=== PATIENT | male | born 1960 | race Caucasian/White ===

== ENCOUNTER 2017-11-03 16:32 | Day surgery (SDC) | payer BC ==
[~2017-11-03 16:32] MED LIST: Lidocaine 1% PF 5 ML VIAL ONE; PROPOFOL 200 MG/20 ML VIAL ONE
[2017-11-03] MEDS ORDERED: Fluorouracil 100 MG, Enoxaparin Sodium 25 MG, EPINEPHrine 0.3 MG in Ophthalmic Irrigati... IVPB SCH (16:39)
[2017-11-03] MEDS ORDERED: Phenylephrine 2.5% Ophth Soln 5 ML BOT FS SCH (16:39)
[2017-11-03] MEDS ORDERED: Cyclopentolate 1% Opth Drop 2 ML BOT FS SCH (16:39)
[2017-11-03] MEDS ORDERED: Phenylephrine 2.5% Ophth Soln 5 ML BOT ONE (17:07)
[2017-11-03] MEDS ORDERED: Cyclopentolate 1% Opth Drop 2 ML BOT ONE (17:07)
[2017-11-03] MEDS ORDERED: Midazolam HCl 2 mg/2 ml Vial ONE (21:47)
[2017-11-03] MEDS ORDERED: Fentanyl 100 MCG/2 ML VIAL ONE (21:47)
--- NOTE | 2017-11-04 06:10 | OP ---
DATE OF PROCEDURE: 11/03/2017 PREOPERATIVE DIAGNOSIS: Rhegmatogenous retinal detachment, right eye. POSTOPERATIVE DIAGNOSIS: Rhegmatogenous retinal detachment, right eye. PROCEDURE: Pars plana vitrectomy and retinal detachment repair, right eye. SURGEON: Dr. Tk Hines ANESTHESIA: General endotracheal. COMPLICATIONS: None. PROCEDURE IN DETAIL: The patient was identified in the preoperative holding area. Appropriate infor med consent for the planned surgical procedure on the right eye had been obtained. The patient was t ransported to the operative suite. Appropriate cardiopulmonary monitoring established. Local anesth esia obtained. General endotracheal anesthesia was initiated. Local anesthesia was obtained using re trobulbar block. The patient was prepped and draped in the usual sterile manner for ophthalmic surge ry on the right eye. Lid speculum was placed in the right eye. The 25-gauge trocars were placed in conjunctiva and sclera supratemporally, inferotemporally, and supranasally. Infusion line was placed inferotemporally. Light pipe and vitreous cutter were inserted into the eye. Core vitrectomy was p erformed. The tear was noted at the 1:30 o'clock position. Vitreus space was trimmed back 360 degre es using wide field viewing system. Posterior drain retinotomy was created. Complete air fluid exch star was performed, 10 minutes being allowed for fluid to drain posteriorly. A 360 laser was placed using endolaser delivery device. 28% sulfur hexafluoride gas was infused into the eye. Supratempora l and supranasal sclerotomy sutured closed. Retrobulbar Kenalog and subconjunctival Ancef were place d, antibiotic ointment placed, and the eye was patched and shielded. The patient was taken to the stoperative recovery unit in good condition having suffered no immediate perioperative complications. DISCHARGE INSTRUCTIONS: The patient was instructed to keep patch and shield on, position left side d own. Follow up in the morning with Dr. Hines.
== END 2017-11-04 00:11 | disposition home or self-care (01) ==
LOC: SDC 16:32
PROVIDERS: ATTEND Ophthalmology Retina Specialist
PROC: 08T43ZZ Resection of Right Vitreous, Percutaneous Approach (ICD-10-PCS; principal; 2017-11-03)
DX: H33.021 Retinal detachment with multiple breaks, right eye (principal)
CPT/HCPCS: 67025; J0171; J1650; J2001; J2250; J2704; J3010; J9190

== ENCOUNTER 2018-02-01 19:30 | Outpatient (CLI) | payer BC | END 2018-02-01 19:31 | disposition home or self-care (01) | LOC: SLEEPLAB 19:30 | PROVIDERS: ATTEND Family Medicine | DX: G47.33 Obstructive sleep apnea (adult) (pediatric) (principal); E66.9 Obesity, unspecified; R06.83 Snoring; F32.9 Major depressive disorder, single episode, unspecified; G47.00 Insomnia, unspecified; I10 Essential (primary) hypertension; Z68.32 Body mass index [BMI] 32.0-32.9, adult | CPT/HCPCS: 95811 ==

== ENCOUNTER 2018-07-28 14:21 | Outpatient (CLI) | payer BC ==
--- NOTE | 2018-07-28 14:50 | RAD ---
CHEST TWO VIEWS: Comparison: 07-18-17, 03-21-16 History: Pain. FINDINGS: Normal cardiac silhouette. The pulmonary vessels and hilum are normal. Costophrenic angles are clear. No masses or consolidation. No pneumothorax or osseous abnormalities. Stable calcified granuloma pro jecting over the right upper lobe. IMPRESSION: No acute cardiopulmonary process. POS: [facility]
== END 2018-07-28 14:22 | disposition home or self-care (01) ==
LOC: SCSRAD 14:21
PROVIDERS: ATTEND Family Medicine
DX: R07.1 Chest pain on breathing (principal)
CPT/HCPCS: 71046

== ENCOUNTER 2018-10-22 13:14 | Outpatient (CLI) | payer BC ==
--- NOTE | 2018-10-22 14:38 | RAD ---
RIGHT ANKLE 3 VIEWS: HISTORY: Right ankle pain and swelling. FINDINGS/IMPRESSION: Degenerative changes are present. No acute fracture, dislocation, or bony destruction is seen. The ankle mortise is maintained. POS: [facility]
--- NOTE | 2018-10-22 14:44 | RAD ---
RIGHT FOOT 3 VIEWS: HISTORY: Right foot pain. FINDINGS/IMPRESSION: There is a nondisplaced fracture involving the distal shaft of the third metatarsal. POS: [facility]
== END 2018-10-22 13:15 | disposition home or self-care (01) ==
LOC: SCSRAD 13:14
PROVIDERS: ATTEND Physician Assistant Medical
DX: M79.671 Pain in right foot (principal); S92.334A Nondisplaced fracture of third metatarsal bone, right foot, initial encounter for closed fracture; M19.071 Primary osteoarthritis, right ankle and foot

== ENCOUNTER 2018-12-08 16:46 | Outpatient (CLI) | payer BC ==
--- NOTE | 2018-12-08 18:43 | RAD ---
THREE VIEWS RIGHT FOOT: 12/08/18 HISTORY: Right foot pain. Follow-up nondisplaced fracture third metatarsal. FINDINGS: The previously seen fracture involving the shaft of the right third metatarsal is again seen. There i s now exuberant callus formation about the fracture suggesting interval healing. No additional fractu re is seen, and there is no evidence of a dislocation. A plantar calcaneal enthesophyte is again iden tified. There is a corticated osseous density inferior to the lateral malleolus stable from prior romy dy which may represent a remote avulsion injury. IMPRESSION: Healing fracture right third metatarsal. POS: [facility]
== END 2018-12-08 16:47 | disposition home or self-care (01) ==
LOC: SCSRAD 16:46
PROVIDERS: ATTEND Family Medicine
DX: S92.334D Nondisplaced fracture of third metatarsal bone, right foot, subsequent encounter for fracture with routine healing (principal)

== ENCOUNTER 2019-10-15 14:30 | Outpatient (CLI) | payer BC ==
--- NOTE | 2019-10-15 17:50 | CT ---
CT OF THE ABDOMEN WITH AND WITHOUT IV CONTRAST 10/15/19 COMPARISON: CT abdomen with and without contrast 10/11/14, MRI abdomen 09/13/14. HISTORY: Re-evaluate pancreatic lesion seen on prior imaging. TECHNIQUE: Axial CT imaging is provided at 5 mm intervals from the lung bases through the sacrum with oral contr ast, without IV contrast. Subsequently, axial CT imaging at 3 mm intervals obtained with IV contrast in the hepatic arterial dominant phase and the portal venous phase. Thin section imaging of portal ve nous phase imaging provided through the pancreas at 1.5 mm intervals. Coronal and sagittal reformatte d imaging obtained. FINDINGS: The visualized lung bases appear unremarkable. Granulomatous calcifications are again noted within th e liver and spleen. Gallbladder is surgically absent. Hepatic parenchyma is diffusely hypodense suggesting a degree of hepatic steatosis. No focal liver le jadon is noted. Adrenal glands and kidneys are unremarkable. There is a low density lesion within the head of the pancreas just anterior to the portal vein is bes t seen on the hepatic arterial dominant phase imaging. There are two coarse calcifications along the posterior margin of the this lesion which appear unchanged when compared to the 2015 exam. The lesion itself measures approximately 2.2 cm in AP dimension, 1.5 cm in transverse dimension, and approximat zeb 1.2 cm in craniocaudal dimension. It is difficult to accurately measure on this examination as it blends in with the adjacent pancreatic parenchyma. On a prior MRI performed 09/13/14, this lesion appe ared to measure approximately 1.8 x 1.[address] prior CT performed 10/31/14, it was estimated to nicole sure approximately 2.1 x 1.4 cm. This suggests that this lesion has not significantly grown when comp ared to the prior examination performed five years prior. There is no pancreatic ductal dilatation se en. No additional pancreatic lesion is appreciated on this examination. Partially imaged bowel demonstrates no evidence for bowel obstruction. Congenital malrotation is note d with the colon noted centrally and to the left of midline with the small bowel noted primarily on t he right. There is a small fat containing umbilical hernia. The vascular structures appear patent. No lymphadenopathy is seen. Review of the osseous structures demonstrates no worrisome lesions. IMPRESSION: Little significant interval change when compared to the study performed five years prior with respect to the low density lesion within the pancreatic body. POS: [facility]
== END 2019-10-15 14:31 | disposition home or self-care (01) ==
LOC: SCSCT 14:30
PROVIDERS: ATTEND Family Medicine
DX: K86.2 Cyst of pancreas (principal); K86.89 Other specified diseases of pancreas
CPT/HCPCS: 74170

== ENCOUNTER 2019-11-22 10:56 | Outpatient (CLI) | payer BC ==
--- NOTE | 2019-11-22 12:11 | ULT ---
Ultrasound of thescrotum/testicles: 11/22/2019 COMPARISON:None available HISTORY:Bilateral hydrocele TECHNIQUE: Multiplanar grayscale sonographic imaging of thescrotal contents, including Doppler interr ogation of the testicles with color flow/spectral analysis FINDINGS:The left testicle measures 3.0 x 4.9 x 2.6 cm in the right testicle measures 3.0 x 5.2 x 2.6 cm. Normal blood flow is noted within both testicles. No intratesticular mass is noted. Prominent bilateral hydroceles are noted. There is septation associated with the right-sided hydrocel e. The left epididymal head measures 1.5 x 1.1 cm and the right epididymal head measures 1.5 x 0.8 cm. T here is an epididymal head cyst on the right measuring 6 mm. IMPRESSION:Prominent bilateral hydroceles. No intratesticular mass.
== END 2019-11-22 10:57 | disposition home or self-care (01) ==
LOC: SCSULT 10:56
PROVIDERS: ATTEND Urology
DX: N43.3 Hydrocele, unspecified (principal)
CPT/HCPCS: 76870; 93976

== ENCOUNTER 2021-06-06 13:41 | Outpatient (CLI) | payer BC ==
[2021-06-06 14:55] LABS: Bilirubin Neg (Negative); Blood, Urine 25 (Negative); Clarity Clear (Clear); Glucose, Urine (Dipstick) Normal (Negative); Ketone, Urine Negative (Negative); Leukocyte 25 (Negative); Nitrite Negative (Negative); Protein, Urine (Dipstick) Negative (Neg-Trace); Urobilinogen Normal mg/dL (Less than 2)
[2021-06-06 15:01] LABS: #Eosinphils 0.1 10x3/uL (0.0-0.5); #Monocytes 0.7 10x3/uL (0.0-1.1); %Basophils 0.3 % (0.0-2.0); %Eosinophils 1.7 % (0.0-6.0); %Lymphocytes 37.4 % (18.0-47.0); %Monocytes 8.7 % (0.0-10.0); %Neutrophils 51.8 % (40.0-75.0); Hemoglobin 15.1 g/dL (13.5-17.5); Mean Corpuscular HGB CONC 33.6 g/dL (32.0-36.0); Mean Corpuscular Hemoglobin 31.9 pg (27.0-33.0); Mean Corpuscular Volume 94.9 fl (81.2-95.1); Mean Platelet Volume 9.6 fl (7.4-10.4); Platelet Count 246 10x3/uL (150-450); RBC Distribution Width 12.3 % (11.5-14.5); Red Blood Cell (RBC) Count 4.74 10x6/uL (4.32-5.72); White Blood Cell (WBC) Count 7.7 10x3/uL (3.5-10.5)
[2021-06-06 15:22] LABS: Prothrombin Time 10.9 sec (9.5-12.1)
[2021-06-06 15:28] LABS: Anion Gap 15 mmol/L (10-20); BUN (Urea Nitrogen) 14 mg/dL (8.4-25.7); Calc. Creatinine Clearance 0 mL/min (70-130); Calcium 9.5 mg/dL (7.8-10.44); Carbon Dioxide 24 mmol/L (23-31); Chloride 106 mmol/L (98-107); Glucose 180 mg/dL (80-115); Potassium 4.1 mmol/L (3.5-5.1); Sodium 141 mmol/L (136-145)
[2021-06-07 08:57] LABS: SARS-CoV-2 PCR by NAA Not Detected (NotDetected)
== END 2021-06-06 13:42 | disposition home or self-care (01) ==
LOC: LABBT 13:41
PROVIDERS: ATTEND Orthopaedic Surgery
DX: Z01.818 Encounter for other preprocedural examination (principal); M17.12 Unilateral primary osteoarthritis, left knee; Z20.822 Contact with and (suspected) exposure to COVID-19
CPT/HCPCS: 71046; 80048; 81003; 85025; 85610; 86850; 86900; 86901; 87081; 93005; 93010; U0003; U0005

== ENCOUNTER 2021-06-11 05:34 | Observation (INO) | payer BC ==
[2021-05-29 14:25] VITALS: BMI 38.9
[2021-06-11] MEDS ORDERED: Sodium Chloride 0.9% 100 ML ONE (05:56)
[2021-06-11] MEDS ORDERED: Tranexamic Acid 1,000 MG/10 ML VIAL ONE ×2 (05:56→09:35)
[2021-06-11] MEDS ORDERED: Fentanyl 100 MCG/2 ML VIAL ONE ×3 (06:14→09:20)
[2021-06-11] MEDS ORDERED: VANCOMYCIN 2 GRAM/400 ML BAG 2 GM in Premix Bag 1 BAG IVPB SCH ×2 (06:15→18:00)
[2021-06-11] MEDS ORDERED: Bupivacaine PF 0.5% 30 ML VIAL ONE (06:20)
[2021-06-11] MEDS ORDERED: Midazolam HCl 2 mg/2 ml Vial ONE (06:41)
[2021-06-11] MEDS ORDERED: Lidocaine 1% (PF) 30 ML VIAL ONE (06:41)
[2021-06-11] MEDS ORDERED: ceFAZolin 2 GM/Dextrose 50 ML IVPB ONE (07:04)
[2021-06-11] MEDS ORDERED: Tranexamic Acid 1,000 MG in Sodium Chloride 0.9% 100 ML IVPB SCH (07:15)
[2021-06-11] MEDS ORDERED: Ondansetron PF 4 MG/2 ML Vial IVP PRN ×2 (07:16→08:45)
[2021-06-11] MEDS ORDERED: Acetaminophen 325 MG TAB PO PRN (07:16)
[2021-06-11] MEDS ORDERED: Promethazine HCl 25 MG/ML VIAL IM PRN ×3 (07:16→09:08)
[2021-06-11] MEDS ORDERED: diphenhydrAMINE 25 MG CAP PO PRN (07:16)
[2021-06-11] MEDS ORDERED: Fentanyl 100 MCG/2 ML VIAL SLOW IVP PRN (07:16)
[2021-06-11] MEDS ORDERED: traMADol HCl 50 MG TAB PO PRN ×3 (07:16→08:45)
[2021-06-11] MEDS ORDERED: Zolpidem Tartrate 5 MG TAB PO PRN ×2 (07:16→08:45)
[2021-06-11] MEDS ORDERED: HYDROcodone/Acetaminophen 10/325 mg Tablet PO PRN ×3 (07:16→08:45)
[2021-06-11] MEDS ORDERED: PROPOFOL 200 MG/20 ML VIAL ONE (07:17)
[2021-06-11] MEDS ORDERED: Bupivacaine HCl 0.5%/Epinephrine 1:200,000/PF 30 ml Vial ONE (07:17)
[2021-06-11] MEDS ORDERED: Ondansetron PF 4 MG/2 ML Vial ONE (07:17)
[2021-06-11] MEDS ORDERED: Dexamethasone 20 MG/5 ML VIAL ONE (07:17)
[2021-06-11] MEDS ORDERED: HYDROmorphone 2 MG/ML VIAL ONE (07:30)
[2021-06-11] MEDS ORDERED: Fentanyl 100 MCG/2 ML VIAL IV PRN (08:43)
[2021-06-11] MEDS ORDERED: Ropivacaine 0.2% 550 ML 550 ML NERVE BLCK SCH (08:45)
[2021-06-11] MEDS ORDERED: Non-Formulary Item 1 EACH (Celecoxib [Celebrex] 200 MG Capsule) PO SCH (09:00)
[2021-06-11] MEDS ORDERED: Atorvastatin Calcium 10 MG TAB PO SCH (09:00)
[2021-06-11] MEDS ORDERED: CeleCOXIB 100 MG CAP PO SCH (09:00)
[2021-06-11] MEDS ORDERED: HYDROmorphone 2 MG/ML VIAL SLOW IVP PRN (09:08)
[2021-06-11] MEDS ORDERED: Ondansetron HCl/PF 4 MG/2 ML Vial IVP PRN (09:08)
[2021-06-11] MEDS ORDERED: Promethazine HCl 25 MG/ML VIAL IVPB PRN (09:08)
[2021-06-11] MEDS ORDERED: Ketorolac Tromethamine 30 MG/ML VIAL ONE (09:40)
[2021-06-11] MEDS ORDERED: HYDROmorphone 0.5 MG/0.5 ML SYRINGE ONE ×4 (09:42→10:33)
[2021-06-11] MEDS ORDERED: Ketorolac Tromethamine 30 MG/ML VIAL IVP SCH (14:00)
[2021-06-11] MEDS: ceFAZolin 2 GM/Dextrose 50 ML 2 GM in Premix Bag 1 BAG IVPB SCH ×2 (16:22→20:30)
[2021-06-11] MEDS: Ketorolac Tromethamine 30 MG/ML VIAL IVP SCH ×2 (16:33→18:13)
[2021-06-11] MEDS: Sodium Chloride 0.9% 1,000 ML IV SCH (18:08)
[2021-06-11] MEDS: Allopurinol 100 MG TAB PO SCH (18:08)
[2021-06-11] MEDS: Amlodipine 5 MG TAB PO SCH (18:09)
[2021-06-11] MEDS: Aspirin 81 mg Enteric Coated Tablet PO SCH ×2 (18:09→20:30)
[2021-06-11] MEDS: Multivitamin W/ Minerals 1 TAB PO SCH (18:10)
[2021-06-11] MEDS: Ferrous Gluconate 324 MG TAB PO SCH ×2 (18:10→20:30)
[2021-06-11] MEDS: Senokot S 8.6-50 MG TAB PO SCH ×2 (18:10→20:30)
[2021-06-11] MEDS: HYDROcodone/Acetaminophen 10/325 mg Tablet PO PRN (21:11)
[2021-06-12] MEDS: Ketorolac Tromethamine 30 MG/ML VIAL IVP SCH ×4 (00:03→12:47)
[2021-06-12] MEDS: Sodium Chloride 0.9% 1,000 ML IV SCH (00:12)
[2021-06-12] MEDS: HYDROcodone/Acetaminophen 10/325 mg Tablet PO PRN ×3 (02:56→12:39)
[2021-06-12 06:02] LABS: Hemoglobin 12.9 g/dL (14.0-18.0); Mean Corpuscular HGB CONC 33.6 g/dL (32.0-36.0); Mean Corpuscular Hemoglobin 32.8 pg (27.0-31.0); Mean Corpuscular Volume 97.8 fL (78.0-98.0); Mean Platelet Volume 6.9 fL (7.4-10.4); Platelet Count 250 thou/uL (130-400); RBC Distribution Width 11.6 % (11.5-14.5); Red Blood Cell (RBC) Count 3.94 mill/uL (4.70-6.10); White Blood Cell (WBC) Count 11.7 thou/uL (4.8-10.8)
[2021-06-12] MEDS: Allopurinol 100 MG TAB PO SCH (08:22)
[2021-06-12] MEDS: Senokot S 8.6-50 MG TAB PO SCH (08:22)
[2021-06-12] MEDS: Aspirin 81 mg Enteric Coated Tablet PO SCH (08:22)
[2021-06-12] MEDS: Multivitamin W/ Minerals 1 TAB PO SCH (08:23)
[2021-06-12] MEDS: Amlodipine 5 MG TAB PO SCH (08:23)
[2021-06-12] MEDS: Ferrous Gluconate 324 MG TAB PO SCH (08:24)
[2021-06-12 13:06] VITALS: BP 122/78; TEMP 97.8
== END 2021-06-12 15:32 | disposition home or self-care (01) ==
LOC: SDC 05:34 → SURG B 07:06 → SDC 14:45 → SURG B 14:45
PROVIDERS: ADMIT Orthopaedic Surgery; ATTEND Orthopaedic Surgery
PROC: 0SRD0J9 Replacement of Left Knee Joint with Synthetic Substitute, Cemented, Open Approach (ICD-10-PCS; principal; 2021-06-11)
PROC: 8E0YXBZ Computer Assisted Procedure of Lower Extremity (ICD-10-PCS; 2021-06-11)
PROC: 3E0T3BZ Introduction of Anesthetic Agent into Peripheral Nerves and Plexi, Percutaneous Approach (ICD-10-PCS; 2021-06-11)
DX: M17.12 Unilateral primary osteoarthritis, left knee (principal); M71.22 Synovial cyst of popliteal space [Baker], left knee; I10 Essential (primary) hypertension; E78.5 Hyperlipidemia, unspecified; M10.9 Gout, unspecified; Z87.891 Personal history of nicotine dependence; Z79.899 Other long term (current) drug therapy; Z96.651 Presence of right artificial knee joint
CPT/HCPCS: 36415; 85027; 86850; 86900; 86901; 96365; 96375; 96376; A4306; C1713; C1776; G0378; J0690; J1100; J1170; J1885; J2001; J2250; J2405; J2704; J2795; J3010; J3370; J3490; S0020

== ENCOUNTER 2021-11-14 13:14 | Outpatient (CLI) | payer BC | END 2021-11-14 13:15 | disposition home or self-care (01) | LOC: TBSIIMAG 13:14 | PROVIDERS: ATTEND Orthopaedic Surgery | DX: S46.011A Strain of muscle(s) and tendon(s) of the rotator cuff of right shoulder, initial encounter (principal); M19.011 Primary osteoarthritis, right shoulder; M67.813 Other specified disorders of tendon, right shoulder; M62.511 Muscle wasting and atrophy, not elsewhere classified, right shoulder ==

== ENCOUNTER 2021-12-17 09:49 | Outpatient (CLI) | payer BC ==
[2021-12-17 10:46] LABS: #Eosinphils 0.2 10x3/uL (0.0-0.5); #Monocytes 0.8 10x3/uL (0.0-1.1); #Neutrophils 4.2 10x3/uL (1.5-8.4); %Basophils 0.4 % (0.0-2.0); %Eosinophils 1.8 % (0.0-6.0); %Lymphocytes 41.5 % (18.0-47.0); %Monocytes 9.2 % (0.0-10.0); %Neutrophils 46.5 % (40.0-75.0); Hemoglobin 14.8 g/dL (13.5-17.5); Mean Corpuscular HGB CONC 34.3 g/dL (32.0-36.0); Mean Corpuscular Volume 93.5 fl (81.2-95.1); Mean Platelet Volume 9.2 fl (7.4-10.4); Platelet Count 236 10x3/uL (150-450); RBC Distribution Width 12.6 % (11.5-14.5); Red Blood Cell (RBC) Count 4.62 10x6/uL (4.32-5.72); White Blood Cell (WBC) Count 8.9 10x3/uL (3.5-10.5)
[2021-12-17 11:15] LABS: Anion Gap 16 mmol/L (10-20); BUN (Urea Nitrogen) 13 mg/dL (8.4-25.7); Calc. Creatinine Clearance 0 mL/min (70-130); Calcium 9.1 mg/dL (7.8-10.44); Carbon Dioxide 23 mmol/L (23-31); Chloride 107 mmol/L (98-107); Estimated GFR 100; Glucose 106 mg/dL (80-115); Sodium 141 mmol/L (136-145)
[2021-12-17 11:19] LABS: Potassium 4.5 mmol/L (3.5-5.1)
== END 2021-12-17 09:50 | disposition home or self-care (01) ==
LOC: LABBT 09:49
PROVIDERS: ATTEND Orthopaedic Surgery
DX: Z01.818 Encounter for other preprocedural examination (principal); S46.011A Strain of muscle(s) and tendon(s) of the rotator cuff of right shoulder, initial encounter; Z20.822 Contact with and (suspected) exposure to COVID-19
CPT/HCPCS: 80048; 85025; 87811; 93005; 93010

== ENCOUNTER 2021-12-20 05:32 | Day surgery (SDC) | payer BC ==
[2021-12-18 14:49] VITALS: BMI 38.9
[2021-12-20] MEDS ORDERED: Midazolam HCl 2 mg/2 ml Vial ONE (06:34)
[2021-12-20] MEDS ORDERED: Fentanyl 100 MCG/2 ML VIAL ONE ×3 (06:34→09:25)
[2021-12-20] MEDS ORDERED: Ondansetron PF 4 MG/2 ML Vial ONE (06:38)
[2021-12-20] MEDS ORDERED: PROPOFOL 200 MG/20 ML VIAL ONE (06:38)
[2021-12-20] MEDS ORDERED: Lidocaine 1% PF 5 ML VIAL ONE (06:38)
[2021-12-20] MEDS ORDERED: Dexamethasone 20 MG/5 ML VIAL ONE (06:38)
[2021-12-20] MEDS ORDERED: Ropivacaine 0.5% HCl/PF (150 MG/30 ML VIAL) ONE (06:38)
[2021-12-20] MEDS ORDERED: Ketorolac Tromethamine 30 MG/ML VIAL ONE (06:38)
[2021-12-20] MEDS ORDERED: Neostigmine Methylsulfate 3 MG/3 ML SYRINGE ONE (06:38)
[2021-12-20] MEDS ORDERED: Rocuronium Bromide 10 MG/ML (10ML VIAL) ONE (06:38)
[2021-12-20] MEDS ORDERED: Glycopyrrolate 0.2 MG/ML 5 ML SYRINGE ONE (06:38)
[2021-12-20] MEDS ORDERED: CEFAZOLIN 2 GM VIAL ONE (07:09)
[2021-12-20] MEDS ORDERED: Sodium Chloride 0.9% 100 ML ONE (07:09)
[2021-12-20] MEDS ORDERED: fentaNYL Citrate/PF 100 MCG/2 ML SYRINGE ONE (07:12)
[2021-12-20] MEDS ORDERED: Ropivacaine 0.2% 550 ML 550 ML NERVE BLCK SCH (08:15)
[2021-12-20] MEDS ORDERED: HYDROcodone/Acetaminophen 5/325 mg Tablet PO PRN ×2 (08:15)
[2021-12-20] MEDS ORDERED: Ondansetron PF 4 MG/2 ML Vial IVP PRN (08:15)
[2021-12-20] MEDS ORDERED: Zolpidem Tartrate 5 MG TAB PO PRN (08:15)
[2021-12-20] MEDS ORDERED: traMADol HCl 50 MG TAB PO PRN ×2 (08:15)
[2021-12-20] MEDS ORDERED: Promethazine HCl 25 MG/ML VIAL IM PRN (08:15)
[2021-12-20] MEDS ORDERED: HYDROcodone/Acetaminophen 5/325 mg Tablet ONE (10:27)
== END 2021-12-20 12:25 | disposition home or self-care (01) ==
LOC: SDC 05:32
PROVIDERS: ATTEND Orthopaedic Surgery
PROC: 0LS30ZZ Reposition Right Upper Arm Tendon, Open Approach (ICD-10-PCS; principal; 2021-12-20)
PROC: 0RHJ04Z Insertion of Internal Fixation Device into Right Shoulder Joint, Open Approach (ICD-10-PCS; principal; 2021-12-20)
PROC: 0LQ10ZZ Repair Right Shoulder Tendon, Open Approach (ICD-10-PCS; principal; 2021-12-20)
DX: S46.011A Strain of muscle(s) and tendon(s) of the rotator cuff of right shoulder, initial encounter (principal); S43.081A Other subluxation of right shoulder joint, initial encounter; M75.21 Bicipital tendinitis, right shoulder; I10 Essential (primary) hypertension; M19.90 Unspecified osteoarthritis, unspecified site; M10.9 Gout, unspecified; E78.00 Pure hypercholesterolemia, unspecified; G47.30 Sleep apnea, unspecified; Z87.891 Personal history of nicotine dependence; Z79.82 Long term (current) use of aspirin; Z79.899 Other long term (current) drug therapy; Z96.652 Presence of left artificial knee joint; X50.0XXA Overexertion from strenuous movement or load, initial encounter
CPT/HCPCS: A4306; C1713; J0690; J1100; J1885; J2250; J2405; J2704; J2795; J3010; J3490

== ENCOUNTER 2023-10-27 13:51 | Outpatient (CLI) | payer BC | END 2023-10-27 13:52 | disposition home or self-care (01) | LOC: SCSRAD 13:51 | PROVIDERS: ATTEND Family Medicine | DX: M79.671 Pain in right foot (principal); M19.071 Primary osteoarthritis, right ankle and foot; M77.31 Calcaneal spur, right foot ==